=== PATIENT | male | born 1960 | race African-American/Black ===

== ENCOUNTER 2018-10-13 22:03 | Emergency (ER) | payer OTHER ==
[~2018-10-13] VITALS: Ht 162.6 cm; Wt 59.0 kg
[~2018-10-13 22:03] MED LIST: ANTIVERT25 MG PO
[2018-10-13 23:15] LABS: AMP/METHAMP Negative (Negative); BARBITURATES Negative (Negative); BENZODIAZEPINES Negative (Negative); COCAINE Negative (Negative); METHADONE Negative (Negative); OPIATES Negative (Negative); PCP Negative (Negative)
[2018-10-13 23:55] LABS: HEMOGLOBIN 15.9 gm/dL (14.0-18.0); MCH 32.2 pg (26.0-34.0); MCHC 34.5 g/dL (28.0-37.0); MCV 93.3 fL (80.0-100.0); RBC 4.93 mil/uL (4.50-6.00); RDW 12.6 % (10.5-14.5); WBC 4.4 thou/uL (4.0-11.0)
[2018-10-14 00:03] LABS: CALCIUM 8.9 mg/dL (8.5-10.1); POTASSIUM 3.8 mmol/L (3.5-5.1)
[2018-10-14 06:53] VITALS: BP 137/85
== END 2018-10-14 06:54 | disposition home or self-care (01) ==
LOC: ER 22:03
PROVIDERS: Emergency Medicine
DX: F32.9 Major depressive disorder, single episode, unspecified (principal); R45.851 Suicidal ideations; I25.10 Atherosclerotic heart disease of native coronary artery without angina pectoris; Z90.2 Acquired absence of lung [part of]